=== PATIENT | female | born 1945 | race Caucasian/White ===

== ENCOUNTER 2016-11-12 10:06 | Outpatient (CLI) | payer MEDICARE ==
[2016-11-12 10:41] LABS: ALT (SGPT) 13 U/L (0-55); AST (SGOT) 12 U/L (5-34); Albumin 4.2 g/dL (3.4-4.8); Alkaline Phosphatase 93 U/L (40-150); Anion Gap 17 mmol/L (10-20); BUN (Urea Nitrogen) 16 mg/dL (9.8-20.1); Bilirubin, Total 0.6 mg/dL (0.2-1.2); Calc. Creatinine Clearance 0 mL/min (70-130); Calcium 9.5 mg/dL (7.8-10.44); Carbon Dioxide 19 mmol/L (23-31); Chloride 101 mmol/L (98-107); Estimated GFR-MDRD 45; Globulin 2.6 g/dL (2.4-3.5); Glucose 371 mg/dL (83-110); Potassium 4.3 mmol/L (3.5-5.1); Protein, Total 6.8 g/dL (5.8-8.1); Sodium 133 mmol/L (136-145)
[2016-11-12 10:42] LABS: Hemoglobin A1c 10.8 % (4.0-6.0)
[2016-11-12 10:43] LABS: #Basophils 0.2 thou/uL (0.0-0.2); #Eosinphils 0.4 thou/uL (0.0-0.7); #Lymphocytes 1.9 thou/uL (1.20-3.40); #Monocytes 0.6 thou/uL (0.11-0.59); #Neutrophils 7.8 thou/uL (1.40-6.50); %Basophils 1.8 % (0.0-1.0); %Eosinophils 3.7 % (0.0-10.0); %Monocytes 5.2 % (0.0-10.0); %Neutrophils 72.2 % (42.0-75.0); Hemoglobin 18.5 g/dL (12.0-16.0); Large Platelets SLIGHT; MDiff Complete? YES; Mean Corpuscular HGB CONC 31.9 g/dL (32.0-36.0); Mean Corpuscular Hemoglobin 26.9 pg (27.0-31.0); Mean Corpuscular Volume 84.3 fl (81.0-99.0); Mean Platelet Volume 7.5 fL (7.4-10.4); PLT Morphology Comment Appears Increased; Platelet Count 545 thou/uL (130-400); RBC Distribution Width 15.5 % (11.5-14.5); Red Blood Cell (RBC) Count 6.88 mill/uL (4.20-5.40); White Blood Cell (WBC) Count 10.9 thou/uL (4.8-10.8)
== END 2016-11-12 10:07 | disposition home or self-care (01) ==
LOC: MADLABBHPM 10:06
PROVIDERS: ATTEND Family Medicine
DX: E11.9 Type 2 diabetes mellitus without complications (principal)
CPT/HCPCS: 36415; 80053; 83036; 85025

== ENCOUNTER 2017-02-06 10:05 | Outpatient (CLI) | payer MEDICARE ==
[2017-02-06 10:41] LABS: Red Blood Cell (RBC) Count 7.27 mill/uL (4.20-5.40)
[2017-02-06 10:42] LABS: Hemoglobin 20.3 g/dL (12.0-16.0); Hemoglobin A1c 7.3 % (4.0-6.0)
[2017-02-06 11:07] LABS: #Basophils 0.2 thou/uL (0.0-0.2); #Eosinphils 0.4 thou/uL (0.0-0.7); #Lymphocytes 1.5 thou/uL (1.20-3.40); #Monocytes 0.7 thou/uL (0.11-0.59); #Neutrophils 8.5 thou/uL (1.40-6.50); %Eosinophils 3.9 % (0.0-10.0); %Lymphocytes 13.5 % (21.0-51.0); %Monocytes 6.1 % (0.0-10.0); %Neutrophils 74.5 % (42.0-75.0); Mean Corpuscular HGB CONC 32.3 g/dL (32.0-36.0); Mean Corpuscular Volume 86.5 fL (81.0-99.0); Mean Platelet Volume 7.3 fL (7.4-10.4); PLT Morphology Comment Appears Increased; Platelet Count 544 thou/uL (130-400); RBC Distribution Width 15.3 % (11.5-14.5)
[2017-02-06 11:08] LABS: RBC Morphology Normal
[2017-02-06 11:09] LABS: White Blood Cell (WBC) Count 11.4 thou/uL (4.8-10.8)
[2017-02-06 11:13] LABS: Critical Call w/ Read Back TAKE RESULT
[2017-02-06 11:28] LABS: ALT (SGPT) 10 U/L (8-55); AST (SGOT) 12 U/L (5-34); Alkaline Phosphatase 94 U/L (40-150); Anion Gap 15 mmol/L (10-20); BUN (Urea Nitrogen) 18 mg/dL (9.8-20.1); Bilirubin, Total 0.6 mg/dL (0.2-1.2); Calc. Creatinine Clearance 0 mL/min (70-130); Calcium 9.8 mg/dL (7.8-10.44); Carbon Dioxide 25 mmol/L (23-31); Cardiac Risk 3.5 (Less than 4.5); Chloride 103 mmol/L (98-107); Cholesterol 189 mg/dl (< 200 Desired); Estimated GFR-MDRD 53; Globulin 2.9 g/dL (2.4-3.5); Glucose 182 mg/dL (83-110); HDL Cholesterol 54 mg/dL (>60 Neg Risk); LDL Cholesterol, Calculated 114 mg/dL; Potassium 4.7 mmol/L (3.5-5.1); Protein, Total 6.9 g/dL (6.0-8.3); Sodium 138 mmol/L (136-145); Triglycerides 103 mg/dL (Less than 150)
[2017-02-06 17:40] LABS: Creatinine, Urine 39.39 mg/dL (47-110)
[2017-02-06 17:41] LABS: Microalbumin Urine 32.1 mg/dL (0.5-50.0); Microalbumin/Creat Ratio 814.9 mg/g (Less than 30)
== END 2017-02-06 10:06 | disposition home or self-care (01) ==
LOC: MADLAB 10:05
PROVIDERS: ATTEND Family Medicine
DX: E11.9 Type 2 diabetes mellitus without complications (principal)
CPT/HCPCS: 36415; 80053; 80061; 82043; 83036; 85025

== ENCOUNTER 2017-02-06 13:49 | Emergency (ER) | payer MEDICARE ==
[~2017-02-06 13:49] MED LIST: Sodium Chloride 0.9% 1,000 ML BAG ONE
[2017-02-06 16:04] LABS: Hemoglobin 20.1 g/dL (12.0-16.0)
== END 2017-02-06 16:23 | disposition home or self-care (01) ==
LOC: MADERS 13:49
DX: D75.1 Secondary polycythemia (principal); E11.9 Type 2 diabetes mellitus without complications; F17.200 Nicotine dependence, unspecified, uncomplicated; Z79.02 Long term (current) use of antithrombotics/antiplatelets; Z79.84 Long term (current) use of oral hypoglycemic drugs; Z79.899 Other long term (current) drug therapy
CPT/HCPCS: 36415; 80053; 80061; 82043; 83036; 85025; 96360; J7050

== ENCOUNTER 2017-05-29 10:34 | Outpatient (CLI) | payer MEDICARE ==
[2017-05-29 11:13] LABS: ALT (SGPT) 12 U/L (8-55); AST (SGOT) 14 U/L (5-34); Albumin 4.2 g/dL (3.4-4.8); Alkaline Phosphatase 79 U/L (40-150); Anion Gap 13 mmol/L (10-20); BUN (Urea Nitrogen) 19 mg/dL (9.8-20.1); Bilirubin, Total 0.3 mg/dL (0.2-1.2); Calc. Creatinine Clearance 0 mL/min (70-130); Calcium 9.5 mg/dL (7.8-10.44); Carbon Dioxide 24 mmol/L (23-31); Chloride 106 mmol/L (98-107); Estimated GFR-MDRD 52; Glucose 134 mg/dL (83-110); Potassium 3.9 mmol/L (3.5-5.1); Protein, Total 7.2 g/dL (6.0-8.3); Sodium 139 mmol/L (136-145)
[2017-06-01 12:24] LABS: Hemoglobin A1c 6.5 % (4.0-6.0)
== END 2017-05-29 10:35 | disposition home or self-care (01) ==
LOC: MADLABBHPM 10:34
PROVIDERS: ATTEND Family Medicine
DX: E11.9 Type 2 diabetes mellitus without complications (principal)
CPT/HCPCS: 36415; 80053; 83036

== ENCOUNTER 2017-06-05 14:58 | Outpatient (CLI) | payer MEDICARE ==
[2017-06-06 15:32] LABS: Microalbumin-Urine 4.9 mg/dL; Microalbumin/24 Hr 10.29 mg/24 hr (Less than 30)
== END 2017-06-05 14:59 | disposition home or self-care (01) ==
LOC: MADLAB 14:58
PROVIDERS: ATTEND Family Medicine
DX: E11.22 Type 2 diabetes mellitus with diabetic chronic kidney disease (principal); N18.3 Chronic kidney disease, stage 3 (moderate)
CPT/HCPCS: 36415; 82043

== ENCOUNTER 2017-08-18 09:32 | Emergency (ER) | payer MEDICARE | END 2017-08-18 10:13 | disposition home or self-care (01) | LOC: MADERS 09:32 | DX: L60.0 Ingrowing nail (principal); I10 Essential (primary) hypertension; E11.9 Type 2 diabetes mellitus without complications; M19.90 Unspecified osteoarthritis, unspecified site; F17.210 Nicotine dependence, cigarettes, uncomplicated; Z79.84 Long term (current) use of oral hypoglycemic drugs; Z79.899 Other long term (current) drug therapy | CPT/HCPCS: 99283 ==

== ENCOUNTER 2018-08-15 09:19 | Emergency (ER) | payer MEDICARE ==
[~2018-08-15 09:19] MED LIST changes: -Sodium Chloride 0.9% 1,000 ML BAG ONE; +Sodium Chloride 0.9% 500 ML BAG ONE; +Sodium Chloride Irrig Solution 250 ML BOT ONE
[2018-08-15] MEDS ORDERED: Adacel (T-DAP) 0.5 ML SYRINGE ONE (09:36)
[2018-08-15] MEDS ORDERED: Triple Antibiotic Oint 1 GM Packet ONE (09:36)
[2018-08-15] MEDS ORDERED: Lidocaine 1% 20 ML MDV ONE (09:36)
[2018-08-15] MEDS ORDERED: Bacitracin Zinc 1 Packet ONE (09:37)
[2018-08-15] MEDS ORDERED: Lidocaine 1% w/Epinephrine 1:100K 30 ML VIAL ONE (09:37)
[2018-08-15] MEDS ORDERED: Lisinopril 10 MG TAB ONE (09:41)
[2018-08-15] MEDS ORDERED: Morphine 4 MG/ML VIAL ONE (09:56)
[2018-08-15] MEDS ORDERED: Diazepam 5 MG TAB ONE (10:12)
[2018-08-15] MEDS ORDERED: Ondansetron ODT 4 MG TAB ONE (10:12)
[2018-08-15] MEDS ORDERED: HYDROcodone/Acetaminophen 10/325 mg Tablet ONE (10:12)
--- NOTE | 2018-08-15 10:30 | RAD ---
LEFT HUMERUS RADIOGRAPHS 2 VIEWS: DATE: 08/15/2018. PROVIDED CLINICAL HISTORY: Trauma. FINDINGS: There is a comminuted fracture involving the left proximal humerus, with displaced greater tuberosity and nondisplaced humeral neck components. Apparent widening of the subacromial space is likely on t he basis of pseudosubluxation from effusion. The glenohumeral relationship is not well assessed on t he basis of this study. IMPRESSION: Comminuted left proximal humeral fracture as above. POS: ISIDRO
[2018-08-15] MEDS ORDERED: Prochlorperazine 10 MG/2 ML VIAL ONE (10:51)
== END 2018-08-15 11:35 | disposition home or self-care (01) ==
LOC: MADERS 09:19
DX: S42.202A Unspecified fracture of upper end of left humerus, initial encounter for closed fracture (principal); S01.412A Laceration without foreign body of left cheek and temporomandibular area, initial encounter; I10 Essential (primary) hypertension; E11.9 Type 2 diabetes mellitus without complications; F17.210 Nicotine dependence, cigarettes, uncomplicated; Z79.899 Other long term (current) drug therapy; Z79.84 Long term (current) use of oral hypoglycemic drugs; Z79.82 Long term (current) use of aspirin; W19.XXXA Unspecified fall, initial encounter
CPT/HCPCS: 12011; 90471; 90715; 96365; 96375; J0780; J2001; J2270; J7050; Q0162

== ENCOUNTER 2018-10-01 11:16 | Outpatient (CLI) | payer MEDICARE ==
[2018-10-01 12:02] LABS: Anion Gap 17 mmol/L (10-20); BUN (Urea Nitrogen) 16 mg/dL (9.8-20.1); Calc. Creatinine Clearance 0 mL/min (70-130); Carbon Dioxide 22 mmol/L (23-31); Chloride 99 mmol/L (98-107); Estimated GFR-MDRD 50; Glucose 279 mg/dL (83-110); Potassium 4.7 mmol/L (3.5-5.1); Sodium 133 mmol/L (136-145)
== END 2018-10-01 11:17 | disposition home or self-care (01) ==
LOC: MADLAB 11:16
PROVIDERS: ATTEND Family Medicine
DX: E87.5 Hyperkalemia (principal)
CPT/HCPCS: 36415; 80048

== ENCOUNTER 2019-10-19 10:24 | Outpatient (CLI) | payer MEDICARE ==
[2019-10-19 10:49] LABS: Anion Gap 14 mmol/L (10-20); BUN (Urea Nitrogen) 18 mg/dL (9.8-20.1); Calc. Creatinine Clearance 0 mL/min (70-130); Calcium 9.9 mg/dL (7.8-10.44); Carbon Dioxide 30 mmol/L (23-31); Chloride 99 mmol/L (98-107); Estimated GFR-MDRD 47; Glucose 181 mg/dL (83-110); Potassium 4.2 mmol/L (3.5-5.1); Sodium 139 mmol/L (136-145)
== END 2019-10-19 10:25 | disposition home or self-care (01) ==
LOC: MADLABBHPM 10:24
PROVIDERS: ATTEND Family Medicine
DX: E87.5 Hyperkalemia (principal)
CPT/HCPCS: 36415; 80048

== ENCOUNTER 2020-12-24 08:09 | Outpatient (CLI) | payer MEDICARE | END 2020-12-24 08:10 | disposition home or self-care (01) | LOC: MADULT 08:09 | PROVIDERS: ATTEND Family Medicine | DX: N18.30 Chronic kidney disease, stage 3 unspecified (principal); N28.1 Cyst of kidney, acquired | CPT/HCPCS: 76770 ==

== ENCOUNTER 2022-12-31 12:27 | Outpatient (CLI) | payer MEDICARE | END 2022-12-31 12:28 | disposition home or self-care (01) | LOC: MADLAB 12:27 | PROVIDERS: ATTEND Family Medicine | DX: M46.96 Unspecified inflammatory spondylopathy, lumbar region (principal); M47.816 Spondylosis without myelopathy or radiculopathy, lumbar region | CPT/HCPCS: 72100 ==

== ENCOUNTER 2024-07-23 04:20 | Emergency (ER) | payer MEDICARE ==
[2024-07-23] MEDS ORDERED: Ipratropium/Albuterol 3 ML NEB ONE ×3 (04:56→08:57)
[2024-07-23 05:06] LABS: #Basophils 0.2 thou/uL (0.0-0.2); #Eosinophils 0.4 thou/uL (0.0-0.7); #Lymphocytes 1.1 thou/uL (1.20-3.40); #Monocytes 0.6 thou/uL (0.11-0.59); #Neutrophils 17.2 thou/uL (1.40-6.50); %Basophils 1.2 % (0.0-1.0); %Eosinophils 2.2 % (0.0-10.0); %Lymphocytes 5.4 % (21.0-51.0); %Monocytes 3.2 % (0.0-10.0); Hematocrit 53.9 % (36.0-47.0); Hemoglobin 16.4 g/dL (12.0-16.0); Mean Corpuscular HGB CONC 30.5 g/dL (32.0-36.0); Mean Corpuscular Hemoglobin 30.8 pg (27.0-31.0); Mean Platelet Volume 7.7 fL (7.4-10.4); Platelet Count 796 10x3/uL (130-400); RBC Distribution Width 16.4 % (11.5-14.5); Red Blood Cell (RBC) Count 5.34 mill/uL (4.20-5.40); White Blood Cell (WBC) Count 19.6 10x3/uL (4.8-10.8)
[2024-07-23 05:23] LABS: ALT (SGPT) 10 U/L (8-55); AST (SGOT) 15 U/L (5-34); Albumin 3.9 g/dL (3.4-4.8); Alkaline Phosphatase 99 U/L (40-110); Anion Gap 17 mmol/L (10-20); BUN (Urea Nitrogen) 21 mg/dL (9.8-20.1); Bilirubin, Total 0.4 mg/dL (0.2-1.2); Calc. Creatinine Clearance 0 mL/min (70-130); Calcium 9.6 mg/dL (7.8-10.44); Carbon Dioxide 21 mmol/L (23-31); Chloride 103 mmol/L (98-107); Estimated GFR 53; Globulin 3.3 g/dL (2.4-3.5); Glucose 304 mg/dL (83-110); Potassium 5.3 mmol/L (3.5-5.1); Sodium 136 mmol/L (136-145); Troponin I Less than 0.010 ng/mL (< 0.028)
[2024-07-23 05:24] LABS: Base Excess-Venous -2.5 mmol/L (-2.0 to 3.0); Bicarbonate (HCO3v) 24.8 mmol/L (22.0-28.0); CO2 Tension (PvCO2) 50.4 mmHg (42.0-51.0); Calcium, Ionized 1.13 mmol/L (1.15-1.33); Chloride 104 mmol/L (98-107); Potassium 4.7 mmol/L (3.5-5.1); Sodium 138 mmol/L (138-145); T. Carbon Dioxide 26.4 mmol/L (22.0-28.0); vO2 Saturation-calc 98.5 % (60.0-85.0)
[2024-07-23 05:29] LABS: Protein, Total 7.2 g/dL (5.8-8.1)
[2024-07-23] MEDS ORDERED: Budesonide 0.5 MG/2 ML NEB NEB SCH (05:30)
[2024-07-23] MEDS ORDERED: guaiFENesin ER 600 MG TAB ONE (05:37)
[2024-07-23] MEDS ORDERED: cefTRIAXone (ROCEPHIN) 2 GM VIAL ONE (05:37)
[2024-07-23] MEDS ORDERED: Sodium Chloride 0.9% 100 ML ONE (05:37)
[2024-07-23] MEDS ORDERED: Sodium Chloride 0.9% 1,000 ML ONE (05:37)
[2024-07-23] MEDS ORDERED: Magnesium 2 GM/50 ML BAG (IN WATER) ONE (06:14)
[2024-07-23 06:47] LABS: Base Excess-Venous -5.9 mmol/L (-2.0 to 3.0); Bicarbonate (HCO3v) 20.3 mmol/L (22.0-28.0); CO2 Tension (PvCO2) 41.3 mmHg (42.0-51.0); Calcium, Ionized 1.04 mmol/L (1.15-1.33); Chloride 111 mmol/L (98-107); Hemoglobin - Calc 16.2 g/dL (12.0-16.0); Sodium 142 mmol/L (138-145); T. Carbon Dioxide 21.6 mmol/L (22.0-28.0); vO2 Saturation-calc 97.6 % (60.0-85.0)
== END 2024-07-23 10:35 | disposition short-term general hospital (02) ==
LOC: MADERS 04:20
DX: J44.1 Chronic obstructive pulmonary disease with (acute) exacerbation (principal); D45 Polycythemia vera; J18.9 Pneumonia, unspecified organism; I10 Essential (primary) hypertension; E11.65 Type 2 diabetes mellitus with hyperglycemia; F17.210 Nicotine dependence, cigarettes, uncomplicated; Z79.82 Long term (current) use of aspirin; Z79.84 Long term (current) use of oral hypoglycemic drugs; Z79.899 Other long term (current) drug therapy
CPT/HCPCS: 71046; 80053; 82330; 82803; 83605; 83880; 84484; 85025; 85379; 87040; 93005; 94760; 96361; 96365; 96367; J0696; J3475; J7030; J7620; J7626

== ENCOUNTER 2024-09-18 14:51 | Inpatient (IN) | payer MEDICARE ==
[2024-09-18] MEDS ORDERED: Insulin Lispro 100 UNIT/ML 10 ML VIAL SC PRN (16:41)
[2024-09-18] MEDS ORDERED: Calcium Carbonate 500 MG ChewTAB PO PRN (16:41)
[2024-09-18 17:11] VITALS: BMI 26.2
[2024-09-18] MEDS ORDERED: Glucagon 1 MG/ML KIT IM PRN (17:51)
[2024-09-18] MEDS ORDERED: Dextrose 50% Abboject 50 ML SYRINGE SLOW IVP PRN (17:51)
[2024-09-18] MEDS ORDERED: Lantiseptic Ointment 130 GM JAR TOP PRN (18:09)
[2024-09-18] MEDS: metFORMIN 500 MG TAB PO SCH (18:26)
[2024-09-18] MEDS: Doxycycline 100 MG CAP PO SCH (21:00)
[2024-09-18] MEDS: Lantiseptic Ointment 130 GM JAR TOP SCH (21:00)
[2024-09-18] MEDS: Atorvastatin Calcium 10 MG TAB PO SCH (21:02)
[2024-09-18] MEDS: Famotidine 20 MG TAB PO SCH (21:02)
[2024-09-18] MEDS: Lantus 1000 UNITS/10 ML VIAL SC SCH (21:02)
[2024-09-18] MEDS: Insulin Regular, Human 100 UNIT/ML 10 ML VIAL SC PRN (21:04)
[2024-09-18] MEDS: Propranolol 10 MG TAB PO SCH (21:17)
[2024-09-18] MEDS ORDERED: KERI TOP PRN (21:46)
[2024-09-19] MEDS: Enoxaparin 40 MG (0.4 mL) SYRINGE SC SCH (08:02)
[2024-09-19] MEDS: Clopidogrel Bisulfate 75 MG TAB PO SCH (08:03)
[2024-09-19] MEDS: predniSONE 10 MG TAB PO SCH (08:03)
[2024-09-19] MEDS: Losartan 50 MG TAB PO SCH (08:04)
[2024-09-19] MEDS: Saxagliptin 2.5 MG TAB PO SCH (08:04)
[2024-09-19] MEDS: Amlodipine 5 MG TAB PO SCH (08:04)
[2024-09-19] MEDS: Insulin Regular, Human 100 UNIT/ML 10 ML VIAL SC PRN (08:05)
[2024-09-19] MEDS: Acetaminophen 325 MG TAB PO PRN (09:32)
[2024-09-19] MEDS: Acetaminophen 500 MG TAB PO PRN (16:48)
[2024-09-19] MEDS: Propranolol 40 MG TAB PO SCH (20:20)
[2024-09-20] MEDS: predniSONE 20 MG TAB PO SCH (08:02)
[2024-09-20] MEDS: Famotidine 20 MG TAB PO SCH (08:02)
[2024-09-21] MEDS: Enoxaparin 30 MG (0.3 mL) SYRINGE SC SCH (08:08)
[2024-09-22] MEDS ORDERED: predniSONE 5 MG TAB PO SCH (08:00)
[2024-09-22] MEDS: predniSONE 20 MG TAB PO SCH (08:11)
[2024-09-25] MEDS ORDERED: predniSONE 5 MG TAB PO SCH (08:00)
[2024-09-25] MEDS: predniSONE 10 MG TAB PO SCH (09:10)
[2024-09-26] MEDS: Mometasone 200 MCG/Formoterol 5 MCG 60 PUFF INHALER INH SCH (08:31)
[2024-09-27] MEDS: Ipratropium/Albuterol 3 ML NEB NEB PRN (08:44)
[2024-09-27 10:13] VITALS: BMI 25.8
[2024-09-27] MEDS: Ondansetron ODT 4 MG TAB PO PRN (14:12)
[2024-09-28] MEDS: predniSONE 5 MG TAB PO SCH (08:14)
[2024-09-28] MEDS: Propranolol 40 MG TAB PO SCH (20:41)
[2024-09-29] MEDS: Amlodipine 5 MG TAB PO SCH (08:13)
[2024-09-30 07:50] VITALS: BP 179/82; TEMP 97.5
[2024-09-30 07:53] LABS: Hematocrit 53.5 % (36.0-47.0); Hemoglobin 15.9 g/dL (12.0-16.0); Mean Corpuscular HGB CONC 28.9 g/dL (32.0-36.0); Mean Corpuscular Hemoglobin 24.4 pg (27.0-31.0); Mean Corpuscular Volume 82.6 fl (78.0-98.0); Mean Platelet Volume 8.3 fL (7.4-10.4); Platelet Count 598 10x3/uL (130-400); RBC Distribution Width 18.4 % (11.5-14.5); Red Blood Cell (RBC) Count 6.88 mill/uL (4.20-5.40); White Blood Cell (WBC) Count 24.8 10x3/uL (4.8-10.8)
[2024-09-30 07:55] LABS: ALT (SGPT) 10 U/L (Less than 34); AST (SGOT) 14 U/L (11-34); Albumin 3.5 g/dL (3.1-4.5); Alkaline Phosphatase 103 U/L (40-110); Anion Gap 13 mmol/L (10-20); BUN (Urea Nitrogen) 24 mg/dL (9.8-20.1); Bilirubin, Total 0.4 mg/dL (0.3-1.2); Calc. Creatinine Clearance 46 mL/min (70-130); Calcium 9.2 mg/dL (7.8-10.44); Carbon Dioxide 23 mmol/L (23-31); Chloride 106 mmol/L (98-107); Estimated GFR 63; Globulin 3.1 g/dL (2.4-3.5); Glucose 322 mg/dL (83-110); Lipase 44 U/L (8-78); Potassium 4.2 mmol/L (3.5-5.1); Protein, Total 6.6 g/dL (5.8-8.1); Sodium 138 mmol/L (136-145)
[2024-09-30 07:57] LABS: Band 2 % (5-11); MDiff Complete? YES; Manual Diff?? YES; Neutrophil 86 % (42-75)
[2024-09-30 07:58] LABS: Anisocytosis SLIGHT = 6-15 cells (100X) (0-5/hpf); Eosinophils 2 % (0-10); Lymphocytes 6 % (21-51); Monocytes 4 % (0-10); Platelet Adequacy Comment Appears Increased
[2024-09-30 08:55] LABS: Bilirubin Negative (Negative); Blood, Urine Negative (Negative); Clarity Clear (Clear); Glucose, Urine (Dipstick) 500 mg/dL (Negative); Ketone, Urine Negative (Negative); Leukocyte Negative (Negative); Nitrite Negative (Negative); Protein, Urine (Dipstick) 100 mg/dL (Neg-Trace); Specific Gravity, Urine 1.015 (1.005-1.030); Urobilinogen 0.2 mg/dL (Less than 2)
[2024-09-30] MEDS ORDERED: Iopamidol 370 76% 100 ML VIAL ONE (09:00)
[2024-09-30 09:12] LABS: RBC/HPF 0-3 HPF (0-3)
[2024-09-30 09:13] LABS: Bacteria/HPF Rare-Few HPF (None Seen); Squamous Epithelial 0-3 HPF (0-3); WBC/HPF 0-3 HPF (0-3)
[2024-10-01] MEDS ORDERED: Enoxaparin 40 MG (0.4 mL) SYRINGE SC SCH (09:00)
== END 2024-09-30 11:40 | disposition short-term general hospital (02) | DRG 945 ==
LOC: MADMS 16:28
PROVIDERS: ADMIT Family Medicine; ATTEND Family Medicine
PROC: F07Z9ZZ Gait Training/Functional Ambulation Treatment (ICD-10-PCS; principal; 2024-09-18)
DX: R53.81 Other malaise (principal); J44.1 Chronic obstructive pulmonary disease with (acute) exacerbation; R53.1 Weakness; I12.9 Hypertensive chronic kidney disease with stage 1 through stage 4 chronic kidney disease, or unspecified chronic kidney disease; D45 Polycythemia vera; E11.65 Type 2 diabetes mellitus with hyperglycemia; N18.30 Chronic kidney disease, stage 3 unspecified; D72.823 Leukemoid reaction; D73.5 Infarction of spleen; I70.90 Unspecified atherosclerosis; Z66 Do not resuscitate; Z87.891 Personal history of nicotine dependence; Z98.61 Coronary angioplasty status
CPT/HCPCS: 36416; 71045; 74177; 80053; 81001; 83690; 85025; 87086; J1650; J1815; J7512; J7620; Q0162; Q9967